=== PATIENT | female | born 2000 | race Caucasian/White ===

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

== ENCOUNTER 2018-10-07 21:31 | Emergency (ER) | payer SELFPAY ==
[~2018-10-07] VITALS: Ht 160 cm; Wt 79.5 kg
[2018-10-07 21:35] VITALS: Ht 160 cm; Wt 79.5 kg
[2018-10-07 22:41] LABS: BASOPHILS 0.5 % (0-2); EOSINOPHILS 4.2 % (0-7); HEMATOCRIT 36.9 % (36.0-48.0); HEMOGLOBIN 12.7 g/dL (12-16); IMMATURE GRANULOCYTES 0.1 % (0-5); LYMPHOCYTES 32.4 % (15-50); MCH 29.1 pg (26.0-34.0); MCHC 34.4 g/dL (31.0-37.0); MCV 84.6 fL (80.0-100.0); MONOCYTES 8.1 % (2-11); NEUTROPHILS 54.7 % (40-80); PLATELET COUNT 334 10x3/uL (130-400); RBC 4.36 10x6/uL (4.00-5.40); RDW 12.4 % (11.5-14.5); WBC 7.8 10x3/uL (4.8-10.8)
[2018-10-07 22:53] LABS: HCG URINE NEGATIVE (NEGATIVE)
[2018-10-07 22:54] LABS: UDS - AMPHET NEGATIVE QUAL (NEGATIVE); UDS - BARB NEGATIVE QUAL (NEGATIVE); UDS - BENZO NEGATIVE QUAL (NEGATIVE); UDS - COCAINE NEGATIVE QUAL (NEGATIVE); UDS - OPIATE NEGATIVE QUAL (NEGATIVE); UDS - PCP NEGATIVE QUAL (NEGATIVE); UDS - THC POSITIVE QUAL (NEGATIVE)
[2018-10-07 22:59] LABS: APPEARANCE CLEAR (CLEAR); BILIRUBIN NEGATIVE (NEGATIVE); COLOR YELLOW (YELLOW); GLUCOSE NEGATIVE (NEGATIVE); KETONE SMALL mg/dL (NEGATIVE); NITRITE NEGATIVE (NEGATIVE); PROTEIN NEGATIVE (NEGATIVE); UROBILINOGEN NORMAL (NORMAL)
[2018-10-07 23:07] LABS: ALBUMIN 3.9 g/dL (3.4-5.0); ALKALINE PHOSPHATASE 102 U/L (46-116); ALT (SGPT) 26 U/L (10-68); BILIRUBIN - TOTAL 0.32 mg/dL (0.2-1.3); CALC OSMOLALITY 282 mosm/kg (275-300); CALCIUM 9.2 mg/dL (8.5-10.1); CARBON DIOXIDE 26.1 mmol/L (21.0-32.0); CHLORIDE - SERUM 105 mmol/L (98-107); CREATININE - SERUM 0.6 mg/dL (0.6-1.3); GLUCOSE 92 mg/dL (74-106); POTASSIUM - SERUM 3.6 mmol/L (3.5-5.1); PROTEIN - SERUM 7.9 g/dL (6.4-8.2); SODIUM 142 mmol/L (136-145); UREA NITROGEN 12 mg/dL (7-18); eGFR NON AFRICAN AMERICAN > 90 mL/min (90-120)
[2018-10-07 23:32] VITALS: BP 96/60
== END 2018-10-07 23:33 | disposition home or self-care (01) ==
LOC: D.ER 21:31
PROVIDERS: Family Medicine
DX: F41.9 Anxiety disorder, unspecified (principal)

== ENCOUNTER 2018-11-07 10:21 | Emergency (ER) | payer MEDICAID ==
[~2018-11-07] VITALS: Ht 160 cm; Wt 75.0 kg
[2018-11-07 10:22] VITALS: Ht 160 cm; Wt 75.0 kg
[2018-11-07] MEDS ORDERED: PHENERGAN DM SYR5 ML PO (11:22)
[2018-11-07] MEDS ORDERED: TAMIFLU75 MG PO (11:22)
[2018-11-07 12:02] VITALS: BP 123/76
== END 2018-11-07 12:03 | disposition home or self-care (01) ==
LOC: D.ER 10:21
DX: J11.1 Influenza due to unidentified influenza virus with other respiratory manifestations (principal); M79.18 Myalgia, other site; R51 Headache; R05 Cough; F17.200 Nicotine dependence, unspecified, uncomplicated

== ENCOUNTER 2019-11-28 11:49 | Emergency (ER) | payer MEDICAID ==
[~2019-11-28] VITALS: Ht 160 cm; Wt 53.2 kg
[~2019-11-28 11:49] MED LIST changes: +PHENERGAN DM SYR5 ML PO; +TAMIFLU75 MG PO
[2019-11-28 11:59] VITALS: Ht 160 cm; Wt 53.2 kg
[2019-11-28] MEDS ORDERED: PRENAVITE1 TAB PO (12:00)
[2019-11-28 12:33] LABS: APPEARANCE CLOUDY (CLEAR); BILIRUBIN NEGATIVE (NEGATIVE); COLOR YELLOW (YELLOW); GLUCOSE NEGATIVE (NEGATIVE); KETONE MODERATE mg/dL (NEGATIVE); NITRITE NEGATIVE (NEGATIVE); PROTEIN NEGATIVE (NEGATIVE); SPECIFIC GRAVITY 1.015 (1.005-1.020); UROBILINOGEN NORMAL (NORMAL)
[2019-11-28 12:34] LABS: CALC OSMOLALITY 274 mosm/kg (275-300); CALCIUM 8.8 mg/dL (8.5-10.1); CARBON DIOXIDE 26.2 mmol/L (21.0-32.0); CHLORIDE - SERUM 102 mmol/L (98-107); CREATININE - SERUM 0.5 mg/dL (0.6-1.3); GLUCOSE 106 mg/dL (74-106); POTASSIUM - SERUM 3.5 mmol/L (3.5-5.1); SODIUM 138 mmol/L (136-145); UREA NITROGEN 9 mg/dL (7-18); eGFR NON AFRICAN AMERICAN > 90 mL/min (90-120)
[2019-11-28 12:36] LABS: BACTERIA MANY /hpf (NEGATIVE); EPITHELIAL CELLS NSEEN /hpf (0-5); RED CELLS - URINE 0-5 /hpf (0-5)
[2019-11-28 12:36] LABS: BASOPHILS 0.1 % (0-2); EOSINOPHILS 1.2 % (0-7); HEMATOCRIT 34.4 % (36.0-48.0); HEMOGLOBIN 11.9 g/dL (12-16); IMMATURE GRANULOCYTES 0.3 % (0-5); LYMPHOCYTES 19.6 % (15-50); MCH 30.9 pg (26.0-34.0); MCHC 34.6 g/dL (31.0-37.0); MCV 89.4 fL (80.0-100.0); MEAN PLATELET VOLUME 9.4 fL (7.4-10.4); MONOCYTES 5.5 % (2-11); NEUTROPHILS 73.3 % (40-80); PLATELET COUNT 276 10x3/uL (130-400); RBC 3.85 10x6/uL (4.00-5.40); RDW 12.2 % (11.5-14.5); WBC 7.7 10x3/uL (4.8-10.8)
[2019-11-28 13:02] LABS: ALBUMIN 3.3 g/dL (3.4-5.0); ALKALINE PHOSPHATASE 55 U/L (46-116); ALT (SGPT) 24 U/L (10-68); BILIRUBIN - TOTAL 0.37 mg/dL (0.2-1.3); HCG - QUANTITATIVE (MATERNAL) 45408 mIU/mL; PROTEIN - SERUM 7.2 g/dL (6.4-8.2)
[2019-11-28] MEDS ORDERED: MACROBID100 MG PO (14:06)
[2019-11-28 14:12] VITALS: BP 115/68
== END 2019-11-28 14:13 | disposition home or self-care (01) ==
LOC: D.ER 11:49
PROVIDERS: Emergency Medicine
DX: O23.11 Infections of bladder in pregnancy, first trimester (principal); Z3A.12 12 weeks gestation of pregnancy

== ENCOUNTER 2020-05-29 14:03 | Outpatient (CLI) | payer MEDICAID ==
[2019-11-28 11:59] VITALS: BMI 20.7
[~2020-05-29 14:03] MED LIST changes: +MACROBID100 MG PO; +PRENAVITE1 TAB PO
== END 2020-05-29 14:55 | disposition home or self-care (01) ==
LOC: D.LDO 14:03
PROVIDERS: ATTEND Obstetrics & Gynecology
DX: O36.8190 Decreased fetal movements, unspecified trimester, not applicable or unspecified (principal); Z3A.00 Weeks of gestation of pregnancy not specified

== ENCOUNTER 2020-06-07 18:29 | Outpatient (CLI) | payer MEDICAID ==
[~2020-06-07] VITALS: Ht 160 cm; Wt 73.5 kg
[2020-06-07 19:51] LABS: BILIRUBIN NEGATIVE (NEGATIVE); GLUCOSE 50 mg/dL (NEGATIVE); KETONE NEGATIVE (NEGATIVE); NITRITE NEGATIVE (NEGATIVE); SPECIFIC GRAVITY 1.015 (1.005-1.020); UROBILINOGEN NORMAL (NORMAL)
[2020-06-07 21:40] LABS: UDS - AMPHET NEGATIVE QUAL (NEGATIVE); UDS - BARB NEGATIVE QUAL (NEGATIVE); UDS - BENZO NEGATIVE QUAL (NEGATIVE); UDS - COCAINE NEGATIVE QUAL (NEGATIVE); UDS - OPIATE NEGATIVE QUAL (NEGATIVE); UDS - PCP NEGATIVE QUAL (NEGATIVE); UDS - THC NEGATIVE QUAL (NEGATIVE)
[2020-06-08 05:09] VITALS: BP 98/54; Ht 160 cm; Wt 73.5 kg
== END 2020-06-08 08:05 | disposition home or self-care (01) ==
LOC: D.LDO 18:29 → D.LD 22:43 → D.LDO 06-08 08:05
PROVIDERS: ATTEND Student in an Organized Health Care Education/Training Program
DX: O26.899 Other specified pregnancy related conditions, unspecified trimester (principal); Z3A.00 Weeks of gestation of pregnancy not specified; N85.8 Other specified noninflammatory disorders of uterus

== ENCOUNTER 2020-06-11 21:42 | Outpatient (CLI) | payer MEDICAID ==
[2020-06-08 05:09] VITALS: BMI 28.7
[2020-06-11 22:06] LABS: BILIRUBIN NEGATIVE (NEGATIVE); GLUCOSE 50 mg/dL (NEGATIVE); KETONE NEGATIVE (NEGATIVE); NITRITE NEGATIVE (NEGATIVE); SPECIFIC GRAVITY 1.015 (1.005-1.020); UROBILINOGEN NORMAL (NORMAL)
[2020-06-11 22:11] LABS: UDS - AMPHET NEGATIVE QUAL (NEGATIVE); UDS - BARB NEGATIVE QUAL (NEGATIVE); UDS - BENZO NEGATIVE QUAL (NEGATIVE); UDS - COCAINE NEGATIVE QUAL (NEGATIVE); UDS - OPIATE NEGATIVE QUAL (NEGATIVE); UDS - PCP NEGATIVE QUAL (NEGATIVE); UDS - THC NEGATIVE QUAL (NEGATIVE)
[2020-06-13 07:39] LABS: HEMATOCRIT 31.4 % (36.0-48.0); HEMOGLOBIN 10.5 g/dL (12-16); LYMPHOCYTES 20.8 % (15-50); MCH 29.1 pg (26.0-34.0); MCHC 33.4 g/dL (31.0-37.0); MEAN PLATELET VOLUME 10.7 fL (7.4-10.4); NEUTROPHILS 70.8 % (40-80); PLATELET COUNT 215 10x3/uL (130-400); RBC 3.61 10x6/uL (4.00-5.40); RDW 13.1 % (11.5-14.5)
== END 2020-06-12 01:00 | disposition home or self-care (01) ==
LOC: D.LDO 21:42 → D.LD 23:17 → D.LDO 06-12 01:00
PROVIDERS: ATTEND Student in an Organized Health Care Education/Training Program
DX: O26.893 Other specified pregnancy related conditions, third trimester (principal); Z3A.39 39 weeks gestation of pregnancy

== ENCOUNTER 2020-06-12 03:34 | Inpatient (IN) | payer MEDICAID ==
[~2020-06-12] VITALS: Ht 160 cm; Wt 73.5 kg
[2020-06-12 04:17] LABS: HEMATOCRIT 33.4 % (36.0-48.0); HEMOGLOBIN 11.2 g/dL (12-16); MCH 28.8 pg (26.0-34.0); MCHC 33.5 g/dL (31.0-37.0); MCV 85.9 fL (80.0-100.0); MEAN PLATELET VOLUME 10.1 fL (7.4-10.4); RBC 3.89 10x6/uL (4.00-5.40); WBC 9.4 10x3/uL (4.8-10.8)
[2020-06-12 07:15] VITALS: BP 109/53
--- NOTE | 2020-06-12 07:15 | NUR ---
RECEIVED PT SITTING UP IN BED. CARING FOR INFANT. VSS. HRRR WITHOUT AUDIBLE MURMUR. BBS CLEAR. BS X 4. ABDOMEN SOFT/NON-DISTENDED. FUNDUS FIRM AT U/2. RUBRA LOCHIA SMALL AMT. NO CLOTS EXPRESSED ON FUNDAL MASSAGE. PERINEUM WITH SLIGHT EDEMA NOTED. PPP. NO EDEMA NOTED TO BLE. PIV OF NS WITH PITOCIN 20 UNITS INFUSING AT 125 ML/HR. SITE CLEAR. EPIDURAL CATH DC'D WITH BLACK TIP INTACT. BANDAID TO SITE. PT STATES C/O CRAMPING OF "3" ON 0-10 PAIN SCALE. SR UP X 2. CALL LIGHT IN REACH.
--- NOTE | 2020-06-12 08:30 | NUR ---
PT OOB AND AMB TO BR. VOIDS LARGE AMT OF BLOOD-TINGED URINE. PERICARE DONE PER PT. PANTIES AND PAD ON. PT TRANSFERED VIA AMBULATORY TO ROOM 1274. PT TO BED. ORIENTED TO ROOM, BED, AND CALL LIGHT. SR UP X2. CALL LIGHT IN REACH.
--- NOTE | 2020-06-12 09:15 | NUR ---
PT REQUESTS AND RECEIVES ORANGE JUICE. PT LYING SUPINE IN BED. LIGHTS OUT. PT STATES WILL REST WHILE BABY IN NURSERY.
[2020-06-12 10:01] VITALS: BP 103/62; Ht 160 cm; Wt 73.5 kg
--- NOTE | 2020-06-12 10:25 | NUR ---
PT C/O ABDOMINAL CRAMPING OF "6" ON 0-10 PAIN SCALE. MOTRIN 600 MG GIVEN PO ORDERED. PT INSTRUCTED ON MED. VERBALIZES UNDERSTANDING.
--- NOTE | 2020-06-12 11:00 | NUR ---
PT SITTING UP ON COUCH. CARING FOR . STATES SHOWERED. STATES TOLERATED SHOWER WELL. DENIES NEEDS OR C/O. SO WITH PT.
--- NOTE | 2020-06-12 12:30 | NUR ---
PT LYING TO LEFT SIDE IN BED. EYES CLOSED. RESP NON-LABORED.
--- NOTE | 2020-06-12 14:20 | NUR ---
PT CALLS ON LIGHT. STATES DID NOT GET LUNCH TRAY. DIETARY STAFF NOTIFIED.
--- NOTE | 2020-06-12 16:29 | NUR ---
PT C/O ABDOMINAL CRAMPING OF "8" ON 0-10 PAIN SCALE. MOTRIN 600 MG GIVEN PO ORDERED. PT INSTRUCTED ON MED. VERBALIZES UNDERSTANDING. REG DIET SERVED.
[2020-06-12 17:18] VITALS: BP 103/59
--- NOTE | 2020-06-12 17:19 | NUR ---
PT AMBULATORY IN ROOM. SITS FOR VS. VSS. PT STATES VOIDING WITHOUT DIFFICULTY. DENIES PASSING CLOTS OR HEAVY BLEEDING. DENIES NEEDS OR C/O.
--- NOTE | 2020-06-12 18:38 | NUR ---
PT LYING TO RIGHT SIDE IN BED. EYES CLOSED. RESP NON-LABORED. PT NOT DISTURBED TO ALLOW FOR REST. SR UP X 2. CALL LIGHT IN REACH.
--- NOTE | 2020-06-12 19:00 | NUR ---
THIS RN AND M TOLBERT RN TO BEDSIDE FOR BEDSIDE SHIFT REPORT. PT CURRENTLY UP AMBULATING IN ROOM PREPARING TO FEED BABY. DENIES NEEDS.
[2020-06-12 19:35] VITALS: BP 100/59
--- NOTE | 2020-06-12 19:35 | NUR ---
THIS RN TO BEDSIDE FOR SHIFT ASSESSMENT. PT SITTING UP IN BED CHANGING BABY. ONCE COMPLETED. SHIFT ASSESSMENT COMPLETED. SEE FLOWSHEET. PT REPORTS ABD CRAMPING 07/11. PAIN MEDICATION NOT AVAILABLE UNTIL APPROX 10PM. PT VERBALIZES UNDERSTANDING AND AGREEABLE. PT DECLINES OFFERS TO BRING HER AN YTHINGTO EAT OR DRINK AT THIS TIME.
--- NOTE | 2020-06-12 20:30 | NUR ---
ROUNDS MADE. PT SITTING UP IN BED VISITING W/SIG OTHER. DENIES NEEDS. STILL REPORTS ABD CRAMPING, BUT AGREEABLE TO WAITING FOR NEXT AVAILABLE PAIN MEDICATION.
--- NOTE | 2020-06-12 21:36 | NUR ---
ROUNDS MADE. PT LYING ON SOFA W/BABY UP IN ARMS AND SIG OTHER AT SIDE. PT AA&O X 4. DENIES NEEDS. SIG OTHER HAS BROUGHT PT MULTIPLE THINGS TO EAT AND DRINK.
--- NOTE | 2020-06-12 22:34 | NUR ---
THIS RN TO BEDSIDE TO ADMIN REQUESTED MOTRIN.PT CURRENTLY SITTING ON SOFA W/BABY UP IN ARMS. PAIN AND NEEDS ASSESSED. PT RATES PAIN 5/10. MOTRIN GIVEN. PT DENIES FURTHER NEEDS.
--- NOTE | 2020-06-13 00:30 | NUR ---
ROUNDS MADE. PT RESTING QUIETLY IN BED W/EYES CLOSED. RESP EVEN AND UNLABORED. PT LEFT UNDISTURBED TO ALLOW FOR REST.
--- NOTE | 2020-06-13 02:29 | NUR ---
ROUNDS MADE. PT RESTING TO RIGHT SIDE W/EYES CLOSED. RESP EVEN AND UNLABORED. PT LEFT UNDISTURBED AT THIS TIME.
[2020-06-13 04:12] VITALS: BP 100/62
--- NOTE | 2020-06-13 06:29 | NUR ---
PT SITTING UP IN BED, DENIES ANY NEEDS AT THIS TIME
--- NOTE | 2020-06-13 07:55 | NUR ---
PT REQUESTING PAIN MEDICATION. RATES PAIN IN ABD 8 ON A SCALE OF ZERO TO TEN. STATES PAIN CRAMPING IN ABD. IBUPROFEN GIVEN PER PT REQUEST.
[2020-06-13 09:15] VITALS: BP 115/68
--- NOTE | 2020-06-13 09:15 | NUR ---
BEDSIDE FOR SHIFT ASSESSMENT. SEE FLOWSHEET FOR DOCUMENTATION. REASSESSMENT FOR PAIN. RATES PAIN DOWN TO A 4 ON A SCALE OF 0/10.
--- NOTE | 2020-06-13 12:33 | NUR ---
PT D/C TO HOME. WILL BE ROOMING IN 1223 TILL BABY IS DISCHARGED. VERBAL AND WRITTEN DISCHARGE ORDERS AND EDUCATION PROVIDED TO PATIENT. SHE DENIES ANY QUESTIONS OR CONCERNS AT THIS TIME.
[2020-06-14 07:15] LABS: RAPID PLASMA REAGIN Non Reactive (Non Reactive)
== END 2020-06-13 12:39 | disposition home or self-care (01) | DRG 807 ==
LOC: D.LDO 03:34 → D.LD 03:54
PROVIDERS: ADMIT Student in an Organized Health Care Education/Training Program; ATTEND Student in an Organized Health Care Education/Training Program
PROC: 10E0XZZ Delivery of Products of Conception, External Approach (ICD-10-PCS; principal; 2020-06-12)
DX: O99.824 Streptococcus B carrier state complicating childbirth (principal); Z37.0 Single live birth; Z3A.39 39 weeks gestation of pregnancy; O77.0 Labor and delivery complicated by meconium in amniotic fluid